=== PATIENT | male | born 1955 | race Caucasian/White ===

== ENCOUNTER 2017-04-09 08:53 | Day surgery (SDC) | payer OTHER ==
[2017-04-09] MEDS ORDERED: DUREZOL OPHTH 1 DOSE AFFEYE ONE (09:00)
[2017-04-09] MEDS ORDERED: TETRACAINE 0.5% OPHTH 1 DOSE AFFEYE ONE ×2 (09:01→12:25)
[2017-04-09] MEDS ORDERED: VIGAMOX 0.5% OPHTH 1 DOSE AFFEYE ONE ×5 (09:02→12:54)
[2017-04-09] MEDS ORDERED: PROLENSA OPHTH 1 DOSE AFFEYE ONE (09:12)
[2017-04-09] MEDS ORDERED: VISINE-A OPHTH 1 DOSE AFFEYE ONE (09:13)
[2017-04-09] MEDS ORDERED: ALPHAGAN-P OPHTH 1 DOSE AFFEYE ONE (09:13)
[2017-04-09] MEDS ORDERED: MYDRIACIL OPHTH 1 DOSE AFFEYE ONE ×3 (09:14→09:16)
[2017-04-09] MEDS ORDERED: AK-DILATE 2.5% OPHTH 1 DOSE OP ONE ×3 (09:14→09:16)
[2017-04-09] MEDS ORDERED: CYCLOGYL 1% OPHTH 1 DOSE OP ONE ×3 (09:14→09:16)
[2017-04-09] MEDS ORDERED: NS 500 ML IV 500 ML IV ONE (09:46)
[2017-04-09] MEDS ORDERED: BETADINE OPHTH SOLN 5% EACHEYE ONE (12:25)
[2017-04-09] MEDS ORDERED: XYLOCAINE-MPF 1% IJ ONE (12:42)
[2017-04-09] MEDS ORDERED: ADRENALINE CHL INJ IJ ONE (12:42)
[2017-04-09] MEDS ORDERED: DUOVISC IO ONE (12:42)
[2017-04-09] MEDS ORDERED: BSS OPHTH (PLAIN) 500 ML with VANCOMYCIN HCL 500 MG VIAL 25 MG, ADRENALINE CHL INJ 1 MG IR ONE ×3 (12:42)
[2017-04-09 14:26] VITALS: BP 178/84
[2017-04-09] MEDS ORDERED: VERSED ONE (15:39)
[2017-04-09] MEDS ORDERED: DIPRIVAN VIAL ONE (15:39)
== END 2017-04-09 13:20 | disposition home or self-care (01) ==
LOC: SURG1 08:53
PROVIDERS: ATTEND Ophthalmology
PROC: 08DK3ZZ Extraction of Left Lens, Percutaneous Approach (ICD-10-PCS; principal; 2017-04-09 15:45)
PROC: 08RK3JZ Replacement of Left Lens with Synthetic Substitute, Percutaneous Approach (ICD-10-PCS; principal; 2017-04-09 15:45)
DX: H25.12 Age-related nuclear cataract, left eye (principal); H25.012 Cortical age-related cataract, left eye; H25.042 Posterior subcapsular polar age-related cataract, left eye; H52.222 Regular astigmatism, left eye
CPT/HCPCS: A4217; J0170; J2250; J3370; J3490

== ENCOUNTER 2017-04-30 07:15 | Day surgery (SDC) | payer OTHER ==
[2017-04-30] MEDS ORDERED: TETRACAINE 0.5% OPHTH 1 DOSE AFFEYE ONE ×3 (08:17→10:19)
[2017-04-30] MEDS ORDERED: VIGAMOX 0.5% OPHTH 1 DOSE AFFEYE ONE ×5 (08:20→10:32)
[2017-04-30] MEDS ORDERED: PROLENSA OPHTH 1 DOSE AFFEYE ONE (08:32)
[2017-04-30] MEDS ORDERED: NS 500 ML IV 500 ML IV ONE (08:34)
[2017-04-30] MEDS ORDERED: ALPHAGAN-P OPHTH 1 DOSE AFFEYE ONE (08:35)
[2017-04-30] MEDS ORDERED: CYCLOGYL 1% OPHTH 1 DOSE OP ONE ×2 (08:36→08:39)
[2017-04-30] MEDS ORDERED: AK-DILATE 2.5% OPHTH 1 DOSE OP ONE ×2 (08:36→08:39)
[2017-04-30] MEDS ORDERED: MYDRIACIL OPHTH 1 DOSE AFFEYE ONE ×2 (08:36→08:39)
[2017-04-30] MEDS ORDERED: DIPRIVAN VIAL ONE (09:39)
[2017-04-30] MEDS ORDERED: BETADINE OPHTH SOLN 5% EACHEYE ONE (10:05)
[2017-04-30] MEDS ORDERED: FENTANYL INJ 100 mcg ONE (10:10)
[2017-04-30] MEDS ORDERED: ADRENALINE CHL INJ IJ ONE (10:19)
[2017-04-30] MEDS ORDERED: XYLOCAINE-MPF 1% IJ ONE (10:19)
[2017-04-30] MEDS ORDERED: BSS OPHTH (PLAIN) 500 ML with VANCOMYCIN HCL 500 MG VIAL 25 MG, ADRENALINE CHL INJ 1 MG IR ONE ×3 (10:19)
[2017-04-30] MEDS ORDERED: DUOVISC IO ONE (10:19)
[2017-04-30 10:51] VITALS: BP 161/64
== END 2017-04-30 10:57 | disposition home or self-care (01) ==
LOC: SURG1 07:15
PROVIDERS: ATTEND Ophthalmology
PROC: 08RJ3JZ Replacement of Right Lens with Synthetic Substitute, Percutaneous Approach (ICD-10-PCS; principal; 2017-04-30 10:30)
PROC: 08DJ3ZZ Extraction of Right Lens, Percutaneous Approach (ICD-10-PCS; principal; 2017-04-30 10:30)
DX: H25.11 Age-related nuclear cataract, right eye (principal); H25.011 Cortical age-related cataract, right eye; H25.041 Posterior subcapsular polar age-related cataract, right eye; H52.221 Regular astigmatism, right eye
CPT/HCPCS: A4217; J0170; J3010; J3370; J3490